=== PATIENT | male | born 1945 | race Caucasian/White ===

== ENCOUNTER → 2017-04-21 | Day surgery (SDC) | payer OTHER, MEDICARE ==
[~2017-04-21] MED LIST: GLYCOPYRROLATE 0.2 MG/1 ML VIAL ONE; LIDOCAINE 1% 2 ML INJ ONE; NALOXONE HCL 0.4 MG/ML INJ IVP PRN; ONDANSETRON 4 MG/2 ML VIAL IVP PRN; PROPOFOL/EMULSION 500 MG/50 ML BOTTLE IV ONE
--- NOTE | 2017-04-21 12:43 | PDANEPAE ---
ANE History of Present Illness EGD,gastroenteritis,anemia ANE Past Medical History - Cardiovascular History Hx Hypertension: Yes Hx Arrhythmias: No Hx Chest Pain: No Hx Coronary Artery / Peripheral Vascular Disease: No Hx CHF / Valvular Disease: No Hx Palpitations: No Cardiovascular History Comment: L BBB-stress test normal. No problems. - Pulmonary History Hx COPD: No Hx Asthma/Reactive Airway Disease: No Hx Recent Upper Respiratory Infection: No Hx Oxygen in Use at Home: No Hx Sleep Apnea: No Sleep Apnea Screening Result - Last Documented: Negative - Neurologic History Hx Cerebrovascular Accident: No Hx Seizures: No Hx Dementia: No - Endocrine History Hx Diabetes: No Hypothyroid: No Hyperthyroid: No - Renal History Hx Renal Disorders: No Renal History Comment: uric acid kidney stones - Liver History Hx Hepatic Disorders: No - Neurological & Psychiatric Hx Hx Neurological and Psychiatric Disorders: Yes Neurological / Psychiatric History Comment: low back pain, sciatica,typically L leg pain moreso than R leg. on Rx ankylosing spondylitis - Cancer History Hx Cancer: Yes Cancer History Comment: basal cell-skin - Congenital Disorder History Hx Congenital Disorders: No - GI History Hx Gastrointestinal Disorders: Yes Gastrointestinal History Comment: on Prilosec due to Indomethacin - Other Health History Other Health History: on allopurinol to keep uric acid in control - Chronic Pain History Chronic Pain: Yes (low back) - Surgical History Prior Surgeries: L tricepts tendon repair 2015,scar tissue-prostate 2014,Green light laser/TURP 2012,R total knee 2012, hammer toe tendon release 2010,Bilat open inguinal hernias '09 & '10,kidney stone ',R rotator cuff repair '04, Fusion L4/L5 1996, emergent colon resection w/colostomy 1994, reversal of colostomy 4 mos later ANE Review of Systems - Exercise capacity METS (RN): 5 METS ANE Patient History - Allergies Allergies/Adverse Reactions: ampicillin Allergy (Verified 04/15/17 17:07) Rash - Home Medications Home Medications: Allopurinol [Allopurinol 300 MG (RX)] 300 mg PO DAILY 11/12/16 [Last Taken Unknown] Etanercept [Enbrel] 25 mg SQ MOTH@1800 11/12/16 [Last Taken Unknown] Indomethacin [INDOMETHACIN] 75 mg PO BID 11/12/16 [Last Taken Unknown] Omeprazole Magnesium [Prilosec Otc] 20 mg PO DAILY 11/12/16 [Last Taken Unknown] amLODIPine BESYLATE [Amlodipine Besylate] 10 mg PO DAILY 11/12/16 [Last Taken Unknown] oxyCODONE/APAP 5/325 [Percocet 5/325 (*)] 1 - 2 tab PO DAILY PRN 11/12/16 [Last Taken Unknown] traMADol [Ultram 50 mg (*)] 50 - 100 mg PO DAILY PRN 11/12/16 [Last Taken Unknown] - Anes Hx Anes Hx: no prior problems - Smoking Hx Smoking Status: Former smoker Marijuana use: No - Alcohol Use Alcohol Use: Occasionally - Family Anes Hx Family Anes Hx: none ANE Labs/Vital Signs - Vital Signs Height: 175.26 cm Weight: 74.843 kg ANE Physical Exam - Airway Neck exam: FROM Mallampati Score: Class 2 Mouth exam: normal dental/mouth exam - Pulmonary Pulmonary: no respiratory distress - Cardiovascular Cardiovascular: regular rate and rhythym - ASA Status ASA Status: II ANE Anesthesia Plan Anesthesia Plan: GA with mask
[2017-04-21 13:02] VITALS: PULSE 63; RESP 16
--- NOTE | 2017-04-21 13:44 | PDGENHP ---
History & Physical Chief Complaint: Diarrhea. Weight loss. History of Present Illness: Chronic diarrhea and abdominal pain. Pertinent Past, Social, Family History: RA. Small bowel obstruction. Giardiasis Relevant Physical Exam: NAD. NC/AT. No LAD. Limited ROM at neck. RRR without m /r/g. CTA B/L. GI: Soft. NABS. No TTP. No R/G Cardiorespiratory Assessment: ASA II. EGD/Colonoscopy
--- NOTE | 2017-04-21 13:58 | POSTANESTH ---
Post Anesthetic Evaluation Cardiovascular Status: Normal, Stable Respiratory Status: Normal, Stable Level of Consciousness/Mental Status: Can Participate in Eval Pain Control: Adequate, Prn Tx Ordered Nausea/Vomiting Control: Adequate, Prn Tx Ordered Complications Possibly Related to Anesthesia: None Noted
--- NOTE | 2017-04-21 14:36 | GPN ---
[f rep st] PROCEDURE NOTE DATE OF PROCEDURE: 04/21/2017 PROCEDURE: Esophagogastroduodenoscopy with small bowel and gastric biopsies. INDICATION: Abdominal pain, weight loss, nausea. CONSENT: Procedure consent was obtained from the patient after the risks and benefits of upper endo scopy with biopsy and anesthesia were discussed in detail. All questions were answered and informed consent was obtained. Preprocedural H and P was performed. Please see the [facility] report docume nt for this H and P. ANESTHESIOLOGIST: Dr. Rodriguez. ENDOSCOPY STAFF: Janny Procedure monitoring is continuous per Anesthesiology protocol. COMPLICATIONS: None. ESTIMATED BLOOD LOSS: None. DESCRIPTION OF PROCEDURE: The patient was placed into the left lateral decubitus position. Propofo l was administered by IV. Once he was sedated, an oral bite block was placed. The Olympus endoscop e was placed into the hypopharynx and the tubular esophagus was intubated under direct visualization . The endoscope was ultimately advanced to the 2nd portion of the duodenum. A retroflexed view of the gastric cardia was performed. FINDINGS: The esophagus was normal in its entirety. The GE junction was at 37 cm and was regular. The top of the gastric folds were visualized at the Z-line and lower esophageal sphincter. The stomach exhibited a mild deformity in the gastric body which looked like a previous surgical sca r, may be from a prior bowel resection. Small biopsies were taken with cold forceps of this area, i n the irregular deformity along the greater curve. The retroflexed view of the cardia was normal. The pylorus was patent. The antrum was normal. The duodenum was normal to the second portion. Random biopsies of the small bowel were taken, given his history of weight loss, to help exclude celiac illness. IMPRESSION: 1. Normal esophagus. 2. Mild deformity along the greater curve of the stomach which looked to be from a previous surgica l site. Small biopsies were taken. The remaining stomach was normal. 3. The duodenum was normal to the second portion with random biopsies taken. RECOMMENDATIONS: 1. Await biopsies. 2. Diet as tolerated. 3. Colonoscopy today for his chronic diarrhea and weight loss. 4. GI followup in clinic as planned. /[id number]/MODL
--- NOTE | 2017-04-21 14:47 | GPN ---
[f rep st] PROCEDURE NOTE DATE OF PROCEDURE: 04/21/2017 PROCEDURE: Colonoscopy with biopsy. ANESTHESIOLOGIST: Dr. Rodriguez. ENDOSCOPY STAFF: More. INDICATIONS: Chronic diarrhea, weight loss. CONSENT: Procedure consent was obtained after the risks and benefits of colonoscopy with anesthesia were discussed in detail. All questions were answered. Informed consent was obtained. COMPLICATIONS: None. ESTIMATED BLOOD LOSS: Minimal. PROCEDURE MONITORING: Continuous, per Anesthesiology protocol. DESCRIPTION OF PROCEDURE: The patient was placed into the left lateral decubitus position. Propofo l was administered through IV. Digital rectal exam revealed a decreased sphincter tone but no palpa ble lesions. The perianal structures were normal. The Olympus endoscope was advanced into the term inal ilium. The cecum was identified by the appendiceal orifice, confluence of tenia coli, and the IC valve. FINDINGS: The terminal ilium exhibited some small aphthoid erosions. These were biopsied. The mucosa of the colon was normal in its entirety. Random biopsies were taken from the right and l eft colon to exclude microscopic colitis. In the rectosigmoid junction, there was an end-to-side colocolonic anastomosis from previous surgery that was patent and healthy appearing. A retroflexed view of the rectum revealed small grade 1 int ernal hemorrhoids, but was otherwise without abnormality. IMPRESSION: 1. Terminal ilium with small aphthoid erosions, which were biopsied. 2. End-to-side colocolonic anastomosis in the rectosigmoid junction that was healthy and patent cj earing. 3. The mucosa of the colon was normal in its entirety and random colon biopsies were taken to exclu de microscopic colitis. RECOMMENDATIONS: 1. Await biopsies of the ilium and colon. 2. Screening colonoscopy would be recommended in 10 years if his health is otherwise normal and abl e to tolerate colonoscopy with anesthesia. 3. High-fiber diet. 4. Lactose-free diet. 5. GI followup clinic visit as planned. /[id number]/MODL
[2017-04-21 15:26] VITALS: TEMP 97.9
[2017-04-21 15:28] VITALS: BP 142/86; O2SAT 99
== END | disposition home or self-care (01) ==
LOC: FSGY 12:00
PROVIDERS: ATTEND Internal Medicine Gastroenterology
DX: R63.4 Abnormal weight loss (principal); R11.2 Nausea with vomiting, unspecified; R19.7 Diarrhea, unspecified; K52.839 Microscopic colitis, unspecified; M06.9 Rheumatoid arthritis, unspecified; K64.9 Unspecified hemorrhoids; Z87.442 Personal history of urinary calculi; Z98.0 Intestinal bypass and anastomosis status; Z88.0 Allergy status to penicillin
CPT/HCPCS: J2704

== ENCOUNTER 2018-06-29 10:19 | Emergency (ER) | payer OTHER, MEDICARE ==
[2018-06-29 10:27] VITALS: BP 169/92
--- NOTE | 2018-06-29 10:56 | EDPHY ---
H & P Stated Complaint: nontraumatic sweling r wrist Time Seen by Provider: 06/29/18 10:29 HPI/ROS: CHIEF COMPLAINT: Right wrist swelling HISTORY OF PRESENT ILLNESS: Patient presents to the ED with a 1 day history of atraumatic right wrist swelling. The patient denies any fever, numbness or prior history of gout. The patient does have a history of uric acid kidney stones and takes allopurinol for this condition. The patient also has a history of ankylosing spondylitis and is now on indomethacin twice a day. The patient denies any additional acute complaints or arthralgias. He denies rash. He denies additional complaints. REVIEW OF SYSTEMS: A comprehensive 10 point review of systems is otherwise negative aside from elements mentioned in the history of present illness. Source: Patient Exam Limitations: No limitations - Personal History Current Tetanus Diphtheria and Acellular Pertussis (TDAP): Unsure - Medical/Surgical History Hx Asthma: No Hx Chronic Respiratory Disease: No Hx Diabetes: No Hx Cardiac Disease: No Hx Renal Disease: No Hx Cirrhosis: No Hx Alcoholism: No Hx HIV/AIDS: No Hx Splenectomy or Spleen Trauma: No Other PMH: osteoarthritis/anklyosing spondylitis - Social History Smoking Status: Former smoker - Physical Exam Exam: General Appearance: Alert, no distress Eyes: Pupils equal and round no pallor or injection ENT, Mouth: Mucous membranes moist Respiratory: There are no retractions, lungs are clear to auscultation Cardiovascular: Regular rate and rhythm Gastrointestinal: Abdomen is soft and nontender, no masses, bowel sounds normal Neurological: 5/5 strength noted all 4 extremities Skin: Warm and dry, no rashes Musculoskeletal: Neck is supple nontender Extremities: symmetrical, full range of motion Psychiatric: Patient is oriented X 3, there is no agitation Constitutional: Initial Vital Signs Temperature (C) 36.5 C 06/29/18 10:24 Heart Rate 79 06/29/18 10:24 Respiratory Rate 18 06/29/18 10:24 Blood Pressure 169/92 H 06/29/18 10:24 O2 Sat (%) 96 06/29/18 10:24 O2 Delivery Mode Room Air Allergies/Adverse Reactions: ampicillin Allergy (Verified 06/29/18 10:22) Rash Home Medications: Medication Instructions Recorded Allopurinol [Allopurinol 300 MG 300 mg PO DAILY 11/12/16 (RX)] Etanercept [Enbrel] 25 mg SQ MOTH@1800 11/12/16 Indomethacin [INDOMETHACIN] 75 mg PO BID 11/12/16 Omeprazole Magnesium [Prilosec Otc] 20 mg PO DAILY 11/12/16 amLODIPine BESYLATE [Amlodipine 10 mg PO DAILY 11/12/16 Besylate] oxyCODONE/APAP 5/325 [Percocet 1 - 2 tab PO DAILY PRN 11/12/16 5/325 (*)] traMADol [Ultram 50 mg (*)] 50 - 100 mg PO DAILY PRN 11/12/16 Medical Decision Making - Diagnostics Imaging Results: Right wrist x-ray: Images reviewed by myself, DJD is noted, no evidence of an acute fracture. ED Course/Re-evaluation: The patient does have a history of uric acid stones and presents to the ED with a 1 day history of acute right wrist swelling. There is no erythema, warmth or fever noted on exam. The patient has no clinical evidence of a septic arthritis. His x-ray does demonstrate DJD. The patient did have heavy use yesterday while snow shoveling. At this point time I do not feel that arthrocentesis is indicated. The patient is currently on indomethacin twice a day. I do feel the patient can be placed in a splint and continue his indomethacin. The patient has been advised to return to the ED for any increasing pain, redness or fever. The patient has been advised to follow up with our on-call orthopedic surgeon for any unimproved symptoms. He is discharged home with customary return precautions. Differential Diagnosis: Differential diagnosis considered includes septic arthritis, gouty arthritis, DJD, myofascial strain, fracture Departure - Departure Disposition: Home, Routine, Self-Care Clinical Impression: Right wrist sprain Condition: Good Additional Instructions: 1. Please wear splint as needed for pain and swelling. 2. Return to the ED for increasing pain, redness, swelling or fever as this may be the sign of a more serious condition such as a joint infection. 3. Please continue your indomethacin as typically dosed. 4. Please follow up with the orthopedic surgeon you have been referred to for any unimproved symptoms. Referrals: Cruz Bowden MD [Medical Doctor] - As per Instructions
== END 2018-06-29 12:16 | disposition home or self-care (01) ==
DX: S63.501A Unspecified sprain of right wrist, initial encounter (principal); X58.XXXA Exposure to other specified factors, initial encounter; Y92.9 Unspecified place or not applicable; Y93.9 Activity, unspecified; Y99.9 Unspecified external cause status
CPT/HCPCS: 73110; 99283; L3984

== ENCOUNTER → 2018-11-26 | Outpatient (CLI) | payer OTHER, MEDICARE | LOC: EMCIMAGING 14:29 | PROVIDERS: ATTEND Orthopaedic Surgery Hand Surgery | DX: S63.521A Sprain of radiocarpal joint of right wrist, initial encounter (principal); M18.11 Unilateral primary osteoarthritis of first carpometacarpal joint, right hand; M75.81 Other shoulder lesions, right shoulder; M19.011 Primary osteoarthritis, right shoulder; M24.011 Loose body in right shoulder | CPT/HCPCS: 73221-PN ==